=== PATIENT | male | born 1950 | race Caucasian/White ===

== ENCOUNTER 2016-06-12 09:27 | Outpatient (CLI) | END 2016-06-12 09:28 | disposition home or self-care (01) ==

== ENCOUNTER 2016-07-11 08:00 | Outpatient (CLI) | payer BC | END 2016-07-11 08:01 | disposition home or self-care (01) | DX: Z79.01 Long term (current) use of anticoagulants (principal); I48.91 Unspecified atrial fibrillation ==

== ENCOUNTER 2016-09-11 15:37 | Outpatient (CLI) | payer BC | END 2016-09-11 15:38 | disposition home or self-care (01) | DX: Z79.01 Long term (current) use of anticoagulants (principal); I48.91 Unspecified atrial fibrillation ==

== ENCOUNTER 2016-10-03 08:44 | Outpatient (CLI) | payer BC | END 2016-10-03 08:45 | disposition home or self-care (01) | DX: I48.91 Unspecified atrial fibrillation (principal); Z79.01 Long term (current) use of anticoagulants ==

== ENCOUNTER 2016-10-31 11:09 | Outpatient (CLI) | payer BC | END 2016-10-31 11:10 | disposition home or self-care (01) | LOC: LAB.F 11:09 | PROVIDERS: ATTEND Internal Medicine | DX: I48.91 Unspecified atrial fibrillation (principal); Z79.01 Long term (current) use of anticoagulants | CPT/HCPCS: 85610 ==

== ENCOUNTER 2016-11-25 08:36 | Outpatient (CLI) | payer BC | END 2016-11-25 08:37 | disposition home or self-care (01) | LOC: LAB.F 08:36 | PROVIDERS: ATTEND Internal Medicine | DX: I48.91 Unspecified atrial fibrillation (principal); Z79.01 Long term (current) use of anticoagulants | CPT/HCPCS: 85610 ==

== ENCOUNTER 2016-12-24 14:24 | Outpatient (CLI) | payer BC | END 2016-12-24 14:25 | disposition home or self-care (01) | LOC: LAB.F 14:24 | PROVIDERS: ATTEND Internal Medicine | DX: I48.91 Unspecified atrial fibrillation (principal); Z79.01 Long term (current) use of anticoagulants | CPT/HCPCS: 85610 ==

== ENCOUNTER 2017-01-22 08:21 | Outpatient (CLI) | payer BC | END 2017-01-22 08:22 | disposition home or self-care (01) | LOC: LAB.F 08:21 | PROVIDERS: ATTEND Internal Medicine | DX: I48.91 Unspecified atrial fibrillation (principal); Z79.01 Long term (current) use of anticoagulants | CPT/HCPCS: 85610 ==

== ENCOUNTER 2017-02-03 07:44 | Outpatient (CLI) | payer BC | END 2017-02-03 07:45 | disposition home or self-care (01) | LOC: LAB.F 07:44 | PROVIDERS: ATTEND Internal Medicine | DX: I48.91 Unspecified atrial fibrillation (principal); Z79.01 Long term (current) use of anticoagulants | CPT/HCPCS: 85610 ==

== ENCOUNTER 2017-02-16 13:14 | Outpatient (CLI) | payer BC | END 2017-02-16 13:15 | disposition home or self-care (01) | LOC: LAB.F 13:14 | PROVIDERS: ATTEND Internal Medicine | DX: I48.91 Unspecified atrial fibrillation (principal); Z79.01 Long term (current) use of anticoagulants | CPT/HCPCS: 85610 ==

== ENCOUNTER 2017-03-10 13:14 | Outpatient (CLI) | payer BC | END 2017-03-10 13:15 | disposition home or self-care (01) | LOC: LAB.F 13:14 | PROVIDERS: ATTEND Internal Medicine | DX: I48.91 Unspecified atrial fibrillation (principal); Z79.01 Long term (current) use of anticoagulants | CPT/HCPCS: 85610 ==

== ENCOUNTER 2017-05-08 14:41 | Outpatient (CLI) | payer OTHER | END 2017-05-08 14:42 | disposition home or self-care (01) | LOC: LAB.F 14:41 | PROVIDERS: ATTEND Internal Medicine | DX: I48.91 Unspecified atrial fibrillation (principal); Z79.01 Long term (current) use of anticoagulants | CPT/HCPCS: 85610 ==

== ENCOUNTER 2017-06-12 08:45 | Outpatient (CLI) | payer OTHER | END 2017-06-12 08:46 | disposition home or self-care (01) | LOC: LAB.F 08:45 | PROVIDERS: ATTEND Internal Medicine | DX: I48.91 Unspecified atrial fibrillation (principal); Z79.01 Long term (current) use of anticoagulants | CPT/HCPCS: 85610 ==

== ENCOUNTER 2017-07-10 15:00 | Outpatient (CLI) | payer OTHER | END 2017-07-10 15:01 | disposition home or self-care (01) | LOC: LAB.F 15:00 | PROVIDERS: ATTEND Internal Medicine | DX: I48.91 Unspecified atrial fibrillation (principal); Z79.01 Long term (current) use of anticoagulants | CPT/HCPCS: 85610 ==

== ENCOUNTER 2017-08-07 14:51 | Outpatient (CLI) | payer OTHER | END 2017-08-07 14:52 | disposition home or self-care (01) | LOC: LAB.F 14:51 | PROVIDERS: ATTEND Internal Medicine | DX: I48.91 Unspecified atrial fibrillation (principal); Z79.01 Long term (current) use of anticoagulants | CPT/HCPCS: 85610 ==

== ENCOUNTER 2017-09-04 11:43 | Outpatient (CLI) | payer OTHER | END 2017-09-04 11:44 | disposition home or self-care (01) | LOC: LAB.F 11:43 | PROVIDERS: ATTEND Internal Medicine | DX: I48.91 Unspecified atrial fibrillation (principal); Z79.01 Long term (current) use of anticoagulants | CPT/HCPCS: 85610 ==

== ENCOUNTER 2017-09-28 14:56 | Outpatient (CLI) | payer OTHER | END 2017-09-28 14:57 | disposition home or self-care (01) | LOC: LAB.F 14:56 | PROVIDERS: ATTEND Internal Medicine | DX: I48.91 Unspecified atrial fibrillation (principal); Z79.01 Long term (current) use of anticoagulants | CPT/HCPCS: 85610 ==

== ENCOUNTER 2017-10-08 11:16 | Outpatient (CLI) | payer OTHER | END 2017-10-08 11:17 | disposition home or self-care (01) | LOC: LAB.F 11:16 | PROVIDERS: ATTEND Internal Medicine | DX: D68.2 Hereditary deficiency of other clotting factors (principal); I82.599 Chronic embolism and thrombosis of other specified deep vein of unspecified lower extremity | CPT/HCPCS: 36415; 85610 ==

== ENCOUNTER 2017-11-10 11:12 | Outpatient (CLI) | payer OTHER | END 2017-11-10 11:13 | disposition home or self-care (01) | LOC: LAB.F 11:12 | PROVIDERS: ATTEND Internal Medicine | DX: I82.599 Chronic embolism and thrombosis of other specified deep vein of unspecified lower extremity (principal) | CPT/HCPCS: 85610 ==

== ENCOUNTER 2017-12-07 09:48 | Outpatient (CLI) | payer OTHER | END 2017-12-07 09:49 | disposition home or self-care (01) | LOC: LAB.F 09:48 | PROVIDERS: ATTEND Internal Medicine | DX: I82.599 Chronic embolism and thrombosis of other specified deep vein of unspecified lower extremity (principal) | CPT/HCPCS: 85610 ==

== ENCOUNTER 2018-01-06 10:06 | Outpatient (CLI) | payer OTHER | END 2018-01-06 10:07 | disposition home or self-care (01) | LOC: LAB.F 10:06 | PROVIDERS: ATTEND Internal Medicine | DX: I82.599 Chronic embolism and thrombosis of other specified deep vein of unspecified lower extremity (principal) | CPT/HCPCS: 85610 ==

== ENCOUNTER 2018-02-10 13:21 | Outpatient (CLI) | payer OTHER | END 2018-02-10 13:22 | disposition home or self-care (01) | LOC: LAB.F 13:21 | PROVIDERS: ATTEND Internal Medicine | DX: I82.599 Chronic embolism and thrombosis of other specified deep vein of unspecified lower extremity (principal) | CPT/HCPCS: 85610 ==

== ENCOUNTER 2018-02-25 09:40 | Outpatient (CLI) | payer OTHER | END 2018-02-25 09:41 | disposition home or self-care (01) | LOC: LAB.F 09:40 | PROVIDERS: ATTEND Internal Medicine | DX: I82.599 Chronic embolism and thrombosis of other specified deep vein of unspecified lower extremity (principal) | CPT/HCPCS: 85610 ==

== ENCOUNTER 2018-03-11 14:17 | Outpatient (CLI) | payer OTHER | END 2018-03-11 14:18 | disposition home or self-care (01) | LOC: LAB.F 14:17 | PROVIDERS: ATTEND Internal Medicine | DX: I82.599 Chronic embolism and thrombosis of other specified deep vein of unspecified lower extremity (principal) | CPT/HCPCS: 85610 ==

== ENCOUNTER 2018-03-16 09:59 | Outpatient (CLI) | payer OTHER | END 2018-03-16 10:00 | disposition home or self-care (01) | LOC: LAB.F 09:59 | PROVIDERS: ATTEND Internal Medicine | DX: I82.599 Chronic embolism and thrombosis of other specified deep vein of unspecified lower extremity (principal) | CPT/HCPCS: 85610 ==

== ENCOUNTER 2018-03-30 14:54 | Outpatient (CLI) | payer OTHER | END 2018-03-30 14:55 | disposition home or self-care (01) | LOC: LAB.F 14:54 | PROVIDERS: ATTEND Internal Medicine | DX: I82.599 Chronic embolism and thrombosis of other specified deep vein of unspecified lower extremity (principal) | CPT/HCPCS: 85610 ==

== ENCOUNTER 2018-04-14 09:05 | Outpatient (CLI) | payer OTHER | END 2018-04-14 09:06 | disposition home or self-care (01) | LOC: LAB.F 09:05 | PROVIDERS: ATTEND Internal Medicine | DX: I82.599 Chronic embolism and thrombosis of other specified deep vein of unspecified lower extremity (principal) | CPT/HCPCS: 85610 ==

== ENCOUNTER 2018-04-21 10:14 | Outpatient (CLI) | payer BC, OTHER ==
[2018-04-21 18:23] LABS: PT - PROTHROMBIN TIME 22.1 secs (9.9-12.6)
== END 2018-04-21 10:15 | disposition home or self-care (01) ==
LOC: LAB.F 10:14
PROVIDERS: ATTEND Internal Medicine
DX: I82.599 Chronic embolism and thrombosis of other specified deep vein of unspecified lower extremity (principal)
CPT/HCPCS: 36415; 85610

== ENCOUNTER 2018-10-07 00:43 | Emergency (ER) | payer BC, MEDICARE ==
--- NOTE | 2018-10-07 00:51 | ED Physician Documentation ---
PD HPI ABD PAIN - Stated complaint Stated Complaint: BACK PX - Chief complaint Chief Complaint: Abd Pain - History obtained from History obtained from: Patient - History of Present Illness Timing - onset: How many days ago (has had few days of right thoracolumbar pain with ROM, no particular injury starting it. This evening had abrupt worsening of pain in the right flank, radiating to right lateral abd. This current pain was severe and felt c/w prior stones he has passed.) Timing - duration: Days Timing - details: Gradual onset, Still present (abruptly worse this evening in past 1-2 hours.) Quality: Cramping, Aching, Pain Location: RLQ Radiation: Right flank Worsened by: Moving, Position. No: Eating Associated symptoms: No: Fever, Nausea, Vomiting, Dysuria, Hematuria Similar symptoms before: Diagnosis (feels similar to prior kidney stones he has passed.) Recently seen: Not recently seen Review of Systems Constitutional: denies: Fever, Chills, Myalgias Nose: denies: Rhinorrhea / runny nose, Congestion Throat: denies: Sore throat Respiratory: denies: Cough GI: reports: Nausea. denies: Vomiting, Constipation, Diarrhea : denies: Dysuria, Frequency Musculoskeletal: reports: Back pain (right flank). denies: Neck pain Neurologic: reports: Near syncope. denies: Generalized weakness, Focal weakness, Numbness PD PAST MEDICAL HISTORY - Past Medical History Cardiovascular: Hypertension, High cholesterol, Deep vein thrombosis, Other Respiratory: None Endocrine/Autoimmune: None GI: None : Benign prostate hypertrophy HEENT: None Psych: Anxiety Musculoskeletal: None Derm: None - Past Surgical History Past Surgical History: No General: Colonoscopy HEENT: Tonsil/Adenoidectomy - Present Medications Home Medications: Ambulatory Orders Medication Instructions Recorded Confirmed Bioflavonoids, Noble [Noble 350 mg PO DAILY 10/11/12 10/07/18 Bioflavonoids] Dutasteride [Avodart] 0.5 mg PO DAILY 10/11/12 10/07/18 [place]-3/Dha/Epa/Fish Oil [Fish Oil 1 each PO DAILY 10/11/12 10/07/18 EC 1,000 mg Softgel] Potassium Chloride 10 meq PO DAILY 10/11/12 10/07/18 Venlafaxine HCl [Effexor Xr] 75 mg PO DAILY 10/11/12 10/07/18 hydroCHLOROthiazide [Hydrodiuril] 25 mg PO DAILY 10/11/12 10/07/18 Omeprazole [PriLOSEC] 20 mg PO DAILY 02/02/14 10/07/18 Dexamethasone [Decadron] 4 mg PO DAILY #5 tablet 10/07/18 Methocarbamol [Robaxin] 500 mg PO Q6H PRN #30 tablet 10/07/18 Oxycodone HCl/Acetaminophen 1 each PO Q6H PRN #18 tablet 10/07/18 [Percocet 5-325 mg Tablet] Rivaroxaban [Xarelto] 10 mg PO DAILY 10/07/18 10/07/18 - Allergies Allergies/Adverse Reactions: Allergies Allergy/AdvReac Type Severity Reaction Status Date / Time No Known Drug Allergies Allergy Verified 10/07/18 00:48 - Social History Does the pt smoke?: No Smoking Status: Never smoker Does the pt drink ETOH?: Yes Does the pt have substance abuse?: No - Immunizations Immunizations are current?: Yes PD ED PE NORMAL - Vitals Vital signs reviewed: Yes - General General: Alert and oriented X 3, Well developed/nourished, Other (appears in pain. Somewhat guarding ROM of the right thoracolumbar area. ) - HEENT HEENT: Pharynx benign - Neck Neck: Supple, no meningeal sign, No adenopathy - Cardiac Cardiac: RRR, No murmur - Respiratory Respiratory: Clear bilaterally - Abdomen Abdomen: Normal bowel sounds, Soft, Non tender, Non distended - Back Back: No CVA TTP, No spinal TTP (but has some soft tissue tenderness right side back at level of kidney/lower ribs. ) - Derm Derm: Normal color, Warm and dry, No rash - Neuro Neuro: Alert and oriented X 3, No motor deficit, No sensory deficit Results - Vitals Vitals: Vital Signs - 24 hr 10/07/18 10/07/18 10/07/18 00:45 01:40 01:48 Temperature 36.5 C Heart Rate 89 85 79 Respiratory 17 15 15 Rate Blood Pressure 150/92 H 150/89 H 150/89 H O2 Saturation 97 95 90 L 10/07/18 10/07/18 10/07/18 01:49 02:12 03:00 Temperature 36.5 C Heart Rate 80 76 Respiratory 16 14 Rate Blood Pressure 138/91 H 133/86 H O2 Saturation 96 98 98 Oxygen O2 Source Room air Oxygen Flow Rate 2 - Labs Labs: Laboratory Tests 10/07/18 00:57 Urine Color YELLOW Urine Clarity CLEAR Urine pH 6.0 Ur Specific [place] 1.020 Urine Protein NEGATIVE Urine Glucose (UA) NEGATIVE Urine Ketones NEGATIVE Urine Occult Blood TRACE-LYSE Urine Nitrite NEGATIVE Urine Bilirubin NEGATIVE Urine Urobilinogen 0.2 (NORMAL) Ur Leukocyte Esterase TRACE H Urine RBC 0-5 Urine WBC 0-3 Ur Squamous Epith Cells NONE SEEN Urine Bacteria Rare Urine Mucus Few Strands Ur Microscopic Review INDICATED Urine Culture Comments INDICATED - Rads (name of study) KUB CT Radiology: Prelim report reviewed, Discussed with rads (no stones, no acute findings. Concern for small mesenteric mass near surgical clips, so to investigate if prior mass was complete or partly removed, so as to establish if it had recurred or not. ), See rad report PD MEDICAL DECISION MAKING - ED course Complexity details: reviewed results (no signs of stones nor acute process. Incidental note from [facility] of prior mesenteric mass with clips. l looked at Operative Report from 2013 and it says about 50% of the lesion was excised, so would expect there to be residual mass, rather than it having come back. ), re- evaluated patient (pain is improved enough with meds, that he feels comfortable heading home. ), considered differential (it seemed like kidney stone, though he had had some positional pain for few days. ALternatively could be myofascial with this evening a muscle spasm. ), d/w patient Departure - Departure Disposition: 01 Home, Self Care Clinical Impression: Right flank pain, Strain of muscle and tendon of back wall of thorax, initial encounter Condition: Stable Record reviewed to determine appropriate education?: Yes Instructions: ED Flank Pain Uncertain Cause Prescriptions: Dexamethasone [Decadron] 4 mg PO DAILY #5 tablet Methocarbamol [Robaxin] 500 mg PO Q6H PRN #30 tablet PRN Reason: Spasms Oxycodone HCl/Acetaminophen [Percocet 5-325 mg Tablet] 1 each PO Q6H PRN #18 tablet PRN Reason: pain Comments: Your CT scan does not show an acute cause for the pain. Presume its a muscular back pain with spasm episode this evening. Alternatively there could be some nerve impingement. You do have gallstones in her gallbladder that has been there for a while. You did not have tenderness in the abdomen where I would expect if it were your gallbladder. However if you have episodes of severity similar to tonight, then we might need to consider gallbladder spasms as an alternative diagnosis. Use Tylenol for mild pains. Add Percocet if needed for worse pain. Use Robaxin (methocarbamol) for spasms of the muscle. Use Decadron steroid anti- inflammatory daily for 5 more days for presumed muscle or nerve irritation. Recheck with your primary care if not improved well over the next several days. Discharge Date/Time: 10/07/18 03:03
[2018-10-07 01:07] LABS: BILIRUBIN,URINE NEGATIVE (NEGATIVE); GLUCOSE, URINE (UA) NEGATIVE (NEGATIVE); KETONES,URINE (UA) NEGATIVE (NEGATIVE); LEUKOCYTE ESTERASE, URINE TRACE (NEGATIVE); NITRITE,URINE NEGATIVE (NEGATIVE); OCCULT BLOOD,URINE TRACE-LYSE (NEGATIVE); PROTEIN,URINE NEGATIVE (NEGATIVE); UROBILINOGEN,URINE 0.2 (NORMAL) E.U./dL (NORMAL)
[2018-10-07 01:09] LABS: CLARITY,URINE CLEAR (CLEAR)
[2018-10-07 01:13] LABS: BACTERIA,URINE Rare /HPF (None Seen); MUCUS,URINE Few Strands; RBC,URINE 0-5 /HPF (0-5); SQUAMOUS EPITHELIAL CELL,UR NONE SEEN (<= Few)
[2018-10-07] MEDS ORDERED: SODIUM CHLORIDE 0.9% 1,000 ML IV ONE (01:26)
[2018-10-07] MEDS ORDERED: KETOROLAC 15 MG/ML VIAL IVP STA (01:26)
[2018-10-07] MEDS ORDERED: MORPHINE 10 MG/ML VIAL IVP STA (01:26)
[2018-10-07] MEDS ORDERED: ONDANSETRON 4 MG/2 ML VIAL IVP STA (01:26)
--- NOTE | 2018-10-07 02:26 | CT Report ---
Reason: right abd/flank pain Procedure Date: 10/07/2018 Accession Number: [id number] / [id number] Procedure: CT - Abdomen/Pelvis WO CPT Code: FULL RESULT: EXAM: CT ABDOMEN AND PELVIS (CT KUB) EXAM DATE: 10/07/2018 02:06 AM. CLINICAL HISTORY: Right abdominal and flank pain. COMPARISONS: ABDOMEN/PELVIS W/O 12/20/2013 8:11 PM, ABDOMEN/PELVIS W/O 10/13/2012 1:17 PM. TECHNIQUE: Routine axial helical CT imaging was performed through the abdomen and pelvis without IV contrast. Reconstructions: Coronal and sagittal. In accordance with CT protocol optimization, one or more of the following dose reduction techniques were utilized for this exam: automated exposure control, adjustment of mA and/or KV based on patient size, or use of iterative reconstructive technique. FINDINGS: Lung Bases: Unremarkable. Right Kidney/Ureter: No stones, hydronephrosis, or hydroureter. No perinephric fat stranding. Left Kidney/Ureter: No stones, hydronephrosis, or hydroureter. No perinephric fat stranding. Other Solid Organs: Noncontrast images of the solid organs are grossly unremarkable with note of scattered hepatic probable cysts. Gallbladder/Bile Ducts: Unremarkable with note of small gallstones. Peritoneal Cavity: Mesenteric mass again noted with surgical clips present, consistent with interval biopsy. Mass currently measures 2.6 x 2.5 cm on image 82 series 3. Scattered small adjacent lymph nodes. Bowel is grossly unremarkable with note of prior appendectomy. Pelvic Organs: No bladder stones or wall thickening. Noncontrast images of the visualized pelvic organs are unremarkable. Vasculature: Unremarkable. Other: Small bilateral fat-containing inguinal hernias without apparent complication. IMPRESSION: 1. No urinary tract stones or obstruction. 2. 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 It currently measures 26 x 25 mm and correlation with previous pathology suggested. 3. Small bilateral fat-containing inguinal hernias without apparent complication. 4. Cholelithiasis. [facility]
[2018-10-07] MEDS ORDERED: oxyCODONE/ACET 5/325 Prepack 4 PO STA (02:48)
[2018-10-07 03:18] VITALS: BP 133/86
== END 2018-10-07 03:03 | disposition home or self-care (01) ==
LOC: ED 00:43
DX: S29.012A Strain of muscle and tendon of back wall of thorax, initial encounter (principal); X58.XXXA Exposure to other specified factors, initial encounter; R10.31 Right lower quadrant pain; K80.20 Calculus of gallbladder without cholecystitis without obstruction; R19.00 Intra-abdominal and pelvic swelling, mass and lump, unspecified site; K40.20 Bilateral inguinal hernia, without obstruction or gangrene, not specified as recurrent; I10 Essential (primary) hypertension; Z86.718 Personal history of other venous thrombosis and embolism; Z79.01 Long term (current) use of anticoagulants
CPT/HCPCS: 74176; 81001; 81003; 87086; 96361; 96374; 96375; 99284

== ENCOUNTER 2023-12-31 10:42 | Outpatient (CLI) | payer BC, MEDICARE ==
[2023-12-31 11:20] LABS: ALBUMIN 4.1 g/dL (3.2-5.5); ALBUMIN/GLOBULIN RATIO 1.3 (1.0-2.2); BILIRUBIN,TOTAL 0.8 mg/dL (0.2-1.0); CALCIUM 9.8 mg/dL (8.5-10.3); TOTAL PROTEIN 7.2 g/dL (6.4-8.9)
== END 2023-12-31 10:43 | disposition home or self-care (01) ==
LOC: LAB 10:42
PROVIDERS: ATTEND Urology
DX: R19.00 Intra-abdominal and pelvic swelling, mass and lump, unspecified site (principal)
CPT/HCPCS: 36415; 80053; 83615

== ENCOUNTER 2024-01-05 12:48 | Outpatient (CLI) | payer MEDICARE, OTHER ==
[2024-01-05] MEDS ORDERED: iohexoL-300 100 ML VIAL ONE (13:04)
[2024-01-05] MEDS: iohexoL-300 100 ML VIAL IVP ONE (15:26)
--- NOTE | 2024-01-05 18:06 | CT Report ---
PROCEDURE: Chest W INDICATIONS: ABN MASS, RENAL MASS CONTRAST: 100ml [id number] TECHNIQUE: After the administration of intravenous contrast, a CT scan of the chest was performed. Images were recorded and evaluated at appropriate window settings. Reformats: axial MIP of the chest, coronal and sagittal. For radiation dose reduction, the following was used: automated exposure control, adjustme nt of mA and/or kV according to patient size. COMPARISON: 01/02/2014. FINDINGS: Image quality: Diagnostic. Chest wall and lower neck: Heterogeneous contrast enhancement of thyroid gland is seen with suggestio n of multiple hypodense bilateral thyroid nodules measures up to 1.6 cm in size in left thyroid lobe series 2 image 12. No breast mass. No axillary or supraclavicular adenopathy by size. Lungs and pleura: No consolidation. No pleural effusions. No pneumothorax. No suspicious pulmonary n odules which require follow up. Mediastinum: Heart size is normal. No pericardial effusion. No large vessel abnormality. No mediastin al adenopathy by size criteria. Bones: No aggressive osseous abnormality. Upper Abdomen: Hepatic steatosis is seen. Well-circumscribed hypodensity involving right hepatic lobe measures 4.7 x 3.7 cm in size and 10.9 Hounsfield unit in density likely represent hepatic cysts. No gross abnormality is seen in included portion of spleen, pancreas, bilateral adrenal glands. Bilater al kidneys are incompletely evaluated. No hydronephrosis is seen. IMPRESSION: 1. No evidence of pulmonary metastatic disease. 2. No mediastinal or hilar lymphadenopathy. 3. Heterogeneous contrast enhancement of thyroid gland with suggestion of bilateral thyroid nodules. Finding may represent nodular goiter. Ulceration ultrasound follow-up is recommended. 4. Findings in upper abdomen as above suggest clinical correlation. Reviewed by: Alverto Matias MD on 01/05/2024 6:04 PM PDT Approved by: Alverto Matias MD on 01/05/2024 6:04 PM PDT Station ID: [id number]
== END 2024-01-05 12:49 | disposition home or self-care (01) ==
LOC: DI 12:48
PROVIDERS: ATTEND Urology
DX: R19.00 Intra-abdominal and pelvic swelling, mass and lump, unspecified site (principal); K76.0 Fatty (change of) liver, not elsewhere classified
CPT/HCPCS: 71260; Q9967